=== PATIENT | female | born 1940 | race Caucasian/White ===

== ENCOUNTER → 2016-12-13 | Day surgery (SDC) | payer OTHER ==
[~2016-12-13] MED LIST: 5-HTP50 MG PO; AMLODIPINE BESY10 MG PO; ASPIRIN EC81 M1 PO; CO Q-1010 MG PO; COZAAR PO; CRESTOR10 MG PO; INHALER INH; LEVOTHYROXINE75 MCG PO; LORTAB 5/500 TA1 TA1 PO; LOVAZA1 G PO; MULTI-DAY1 TAB PO; OMEPRAZOLE40 M1 PO; PRAVASTATIN SOD80 MG PO; PROTONIX PO; QUERCETIN PO; RESVERATROL100 MG PO; SINGULAIR PO; ULTRAM PO; VICODIN ES 7.51 EACH; VIT C PO; VITAL-D RX TABL1 TAB PO; VITAMIN D50000 UNIT PO; ZANTAC300 MG PO; [UNRECOGNIZED DRUG - OTHER] PO
--- NOTE | ~2016-12-13 | OR ---
Unit #: [id number] #: [id number] Patient: DAREN PENA [id number] [address] [place], [place] [address] [id number] O MR#: [id number] NAME: DAREN PENA ROOM: Date of Procedure: 12/13/2016 Admission Date: 12/13/2016 Surgeon: Kingsley Maciel M.D. : 1940 Attending Physician: Kingsley Maciel M.D. Primary Care Physician: Aditi Lopez M.D. OPERATIVE REPORT PROCEDURES PERFORMED Colonoscopy with biopsies, removal of polyps, hemorrhoidal banding x3. INDICATIONS FOR PROCEDURE The patient with recurrent blood in the stool, family history of colon cancer, undergoing colonoscopy for surveillance. MEDICATIONS Monitored anesthesia. POSTOPERATIVE FINDINGS 1. Two polyps, one in ascending and one in transverse, both 3 to 4 mm, removed using biopsy forceps. 2. Large internal hemorrhoids. 3 bands were placed. PLAN Repeat colonoscopy in 5 years DESCRIPTION OF PROCEDURE The patient was explained of the procedure risks and benefits along with risks and benefits of anesthesia. She was brought to the endoscopy room. Propofol anesthesia was given. Rectal exam was done, which was normal. Colonoscope was lubricated, passed up the rectum, advanced under direct vision all the way to cecum. Cecum was identified by ileocecal valve and appendiceal orifice. I then started to pull the scope out carefully looking. 2 polyps were seen as described. I retroflexed in the rectum, large hemorrhoids noted. At this point, I used an EGD scope with multi-shooter and placed 3 bands right above the largest internal hemorrhoids. Gently, the scope was gently pulled out. She tolerated it well. Dictated by... Ifeanyi Ballard/maren TD: 12/13/2016 16:44 JOB #: [id number] CC: Aditi Lopez M.D. Unit #: [id number] #: [id number] Patient: DAREN PENA OPERATIVE REPORT Page 1 of 1 X Kingsley Maciel MD PROCEDURE OPERATIVE NOTE
== END | disposition home or self-care (01) ==
LOC: COPS 06:47
DX: D12.3 Benign neoplasm of transverse colon (principal); K63.5 Polyp of colon; K64.8 Other hemorrhoids; Z87.01 Personal history of pneumonia (recurrent); Z87.19 Personal history of other diseases of the digestive system; Z88.1 Allergy status to other antibiotic agents; Z88.2 Allergy status to sulfonamides; Z88.8 Allergy status to other drugs, medicaments and biological substances; Z79.82 Long term (current) use of aspirin; Z79.899 Other long term (current) drug therapy; Z90.49 Acquired absence of other specified parts of digestive tract; Z98.51 Tubal ligation status; Z98.890 Other specified postprocedural states
CPT/HCPCS: 82947; 88305; J3010